=== PATIENT | female | born 1985 | race Caucasian/White ===

== ENCOUNTER 2016-09-17 08:54 | Emergency (ER) | payer SELFPAY ==
[~2016-09-17] VITALS: Ht 154.9 cm; Wt 73.6 kg
[~2016-09-17 08:54] MED LIST: HALO2TAB PO; ONDA4TAB6 PO; PROM25SU47 RECTAL
[2016-09-17 08:55] VITALS: BP 116/77; PULSE 99; RESP 20; O2SAT 100
[2016-09-17] MEDS ORDERED: 0.9% Sodium Chloride 1,000 ML IV ONE (08:59)
--- NOTE | 2016-09-17 08:59 | ED.REPORT ---
HPI-Abd Pain F Under 40 Date of Service Sep 17, 2016 ED Provider: Camilo Medellin Patient is a 31 year old female who presents to the ED complaining of LUQ abdominal pain onset about 36 hours ago. Associated symptoms include nausea, vomiting, and diarrhea. She has not been able to keep fluids down. She denies hematemesis, hematochezia, cough, or any other symptoms. She has had contact with flu-like illness but nothing as severe as her symptoms. She has had similar abdominal pain when drinking soda or beer. Nursing Notes Stated Complaint: NAUSEA Chief Complaint: Female Abdominal Pain Nursing Notes Reviewed: Yes Allergies: Coded Allergies: No Known Allergies (Unverified Allergy, Unknown, 05/23/15) Scheduled PRN Haloperidol (Haloperidol) 2 Mg Tablet 2 MG PO TID PRN PRN For Pain Ondansetron (Zofran) 4 Mg Tablet 4 MG PO Q4H PRN PRN For Nausea Promethazine Supp (Promethazine Supp) 25 Mg Supp 25 MG RECTAL Q6H PRN PRN For Pain General Time Seen by MD: 08:59 Chief Complaint Abdominal pain Hx Obtained From: Patient, Other family... Arrived By: Walk-in Sudden in Onset?: Yes Past Medical History Past Medical History Healthy Past Surgical History None Smoking History Former Smoker Social History Denies smoking at this time. 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 Physical Exam Initial Vital Signs Vital Signs (First) Date Time Temp Pulse Resp B/P Pulse Ox O2 Delivery O2 Flow Rate FiO2 09/17/16 08:55 36.6 99 20 116/77 100 Head / Eyes: Atraumatic, Normocephalic Neck: Full range of motion Skin: Warm, Dry Neurologic: Alert, Oriented, Nonfocal Psychiatric: Mood/affect normal, Behavior normal, Normal thought content General/Constitutional: Awake, Alert, Well appearing Distress / Hydration: Positive: Distress mild Respiratory / Chest: Atraumatic, Breath sounds NL, Breath sounds = bilat, No respiratory distress Cardiovascular: Heart rate NL, Regular rhythm, Heart sounds NL, Peripheral circulation NL Abdomen: Atraumatic, Soft, BS normoactive Tenderness/Guarding/Rebound: Positive: Tender LUQ..., Tender epigastric (Mid- epigastrium) Back: Inspection NL Interpretation & Diagnostics Lab Results Interpretation Result Diagram: 09/17/16 0912 09/17/16 0912 Test 09/17/16 09:12 09/17/16 10:01 White Blood Count 16.8th/mm3 (3.8-10.1) Red Blood Count 5.08mil/mm3 (3.90-5.20) Hemoglobin 15.3g/dL (12.0-15.6) Hematocrit 43.5% (35.0-46.0) Mean Corpuscular Volume 85.6fL (81-100) Mean Corpuscular Hemoglobin 30.1pg (27.0-35.0) Mean Corpuscular Hemoglobin Concent 35.2% (32.0-37.0) Red Cell Distribution Width 13.2% (12.3-15.4) Platelet Count 395bil/L (150-400) Neutrophils (%) (Auto) 86.1% (40-74) Lymphocytes (%) (Auto) 4.9% (14-46) Monocytes (%) (Auto) 8.6% (4-12) Eosinophils (%) (Auto) 0.1% (0-5) Basophils (%) (Auto) 0.1% (0-3) Sodium Level 137mEq/L (134-144) Potassium Level 3.5mEq/L (3.5-5.2) Chloride Level 99mEq/L (97-108) Carbon Dioxide Level 23mmol/L (18-29) Blood Urea Nitrogen 17mg/dL (6-20) Creatinine 0.79mg/dL (0.57-1.00) Estimat Glomerular Filtration Rate 123mL/min (>59) Glucose Level 132mg/dL (60-99) Calcium Level 9.6mg/dL (8.5-10.1) Magnesium Level 2.2mg/dL (1.6-2.6) Total Bilirubin 0.4mg/dL (0.0-1.2) Aspartate Amino Transf (AST/SGOT) 24U/L (0-50) Alanine Aminotransferase (ALT/SGPT) 16U/L (0-32) Alkaline Phosphatase 48U/L (25-150) Total Protein 8.7g/dL (6.4-8.4) Albumin 4.7g/dL (3.4-5.0) Lipase 21U/L (13-60) Hold Urine Received (Received) CT Abd / Pelvis Interpretation IMPRESSION: 1. No acute disease process. 2. The appendix is normal. 3. Small amount of free fluid in the cul-de-sac or pelvis is within physiologic limits. 4. No inflammatory changes. 5. No free air. 6. No dilated loops of bowel. Dictated by: Sneha Tapia MD, PhD on 09/17/2016 at 12:10 Approved by: Sneha Tapia MD, PhD on 09/17/2016 at 12:10 Study type: Abdominal CT IV contrast Interpretation / Wet Read by: Interpret - Radiologist Re-Eval/Medical Decision Med Decision/Clinical Course Because of her persistent left upper quadrant tenderness in the face of IV Protonix, Tylenol and ketorolac I decided to do a CT scan which ultimately did not elucidate the etiology of her symptoms. She feels dramatically improved with IV hydromorphone. Re-Evaluation/Progress #1: Time of Eval: 10:10 )( Re-Eval Abdomen: BS normoactive Re-Evaluation/Progress Note: Rechecked patient. Pain has mildly improved and nausea has resolved. Re-Evaluation/Progress #2: Time of Eval: 11:24 )( Re-Eval Abdomen: BS normoactive Re-Evaluation/Progress Note: Rechecked patient. Re-Evaluation/Progress #3: Time of Eval: 12:25 )( Re-Eval Abdomen: BS normoactive Patient Status: Condition improved Re-Evaluation/Progress Note: Rechecked patient. Discussed plan for discharge. Patient understands and agrees with plan. All questions addressed at this time. Counseled Regarding: Diagnosis, Lab results, Need for follow-up, When/why to return to ED Discharge & Departure Primary Impression: Abdominal pain Abdominal location: left upper quadrant Qualified Code: R10.12 - Left upper quadrant pain Additional Impressions: Nausea & vomiting Vomiting type: unspecified Vomiting Intractability: unspecified Qualified Code: R11.2 - Nausea with vomiting, unspecified Diarrhea Disposition: Home Discharge Condition All VS Reviewed: Yes Condition: Improved Patient Instructions: Acute Abdominal Pain (ED), Acute Nausea and Vomiting (ED) Additional Instructions: No dangerous cause for your symptoms his discomfort today. I believe you have some sort of a viral gastrointestinal infection, but you need follow-up tomorrow if your symptoms are not significantly improved. Follow-up next week if things are not resolved. Use Tylenol or ibuprofen preferentially to help with pain. Use ondansetron as needed for nausea. Stick to a clear liquid diet until you are feeling somewhat better. Use hydrocodone/APAP as needed for more severe pain if the preceding treatments are insufficient to keep your pain reasonably controlled. Referrals: Albin Leggett DO [facility] Scribe Attestation Portions of this note were transcribed by Tony Beasley. I, Dr. Medellin personally performed the history, physical exam and medical decision-making; I reviewed and confirmed the accuracy of the information in the transcribed note. Signed by: Tony Beasley 09/17/16, 1227 copies to: [facility] Camilo Medellin MD Sep 17, 2016 08:59 TONY BEASLEY Sep 17, 2016 09:11
[2016-09-17] MEDS ORDERED: Pantoprazole 4 mg/mL 10 mL Inj IVPUSH ONE (09:00)
[2016-09-17] MEDS: Ondansetron 2 mg/mL 2 mL Inj IVPUSH PRN ×2 (09:11→09:42)
[2016-09-17 09:30] LABS: BASOPHILS % (AUTO) 0.1 % (0-3); EOSINOPHILS % (AUTO) 0.1 % (0-5); MONOCYTES % (AUTO) 8.6 % (4-12); Mean Corpuscular Hemoglobin 30.1 pg (27.0-35.0); Mean Corpuscular Volume 85.6 fL (81-100); NEUTROPHILS % (AUTO) 86.1 % (40-74); Platelet Count 395 bil/L (150-400)
[2016-09-17 10:03] LABS: Magnesium 2.2 mg/dL (1.6-2.6)
[2016-09-17] MEDS ORDERED: Acetaminophen IV 1,000 MG in IV Premix 1 EACH IV ONE (10:15)
[2016-09-17] MEDS ORDERED: HYDROmorphone 1 mg/mL Inj IVPUSH ONE (11:20)
--- NOTE | 2016-09-17 12:12 | DRSVH ---
PROCEDURE: CT ABDOMEN AND PELVIS WITH CONTRAST ([id number]) INDICATIONS: LUQ pain TECHNIQUE: After the administration of intravenous contrast, 5 mm thick sections acquired from the diaphragm to the symphysis. 5 mm coronal and sagittal reformats were acquired. For radiation dose reduction, the following was used: automated exposure control, adjustment of mA and/or kV according to patient siz e. COMPARISON: None. FINDINGS: Image quality: Excellent. ABDOMEN: Lung bases: Lung bases are clear. Heart size is normal. Solid organs: Liver and spleen are normal in size and enhancement. Gallbladder is within normal lopez its. Biliary system is non dilated. Pancreas enhances normally. No adrenal nodules. Kidneys demon strate normal size and enhancement, without hydronephrosis. Peritoneum and bowel: Bowel loops demonstrate normal wall thickness and caliber. No free air. Small amount of free fluid noted within the cul-de-sac of the pelvis which is within physiologic limits. T he appendix is normal. Nodes and vessels: No retroperitoneal or mesenteric adenopathy by size criteria. Aorta and inferior vena cava are normal in size. Miscellaneous: No ventral hernias. PELVIS: Genitourinary: Bladder wall thickness is normal. Miscellaneous: No inguinal hernias or adenopathy. Bones: No suspicious bony lesions. No vertebral body compression fractures. IMPRESSION: 1. No acute disease process. 2. The appendix is normal. 3. Small amount of free fluid in the cul-de-sac or pelvis is within physiologic limits. 4. No inflammatory changes. 5. No free air. 6. No dilated loops of bowel. Dictated by: Sneha Tapia MD, PhD on 09/17/2016 at 12:10 Approved by: Sneha Tapia MD, PhD on 09/17/2016 at 12:10
[2016-09-17] MEDS ORDERED: ONDA4TAB9 PO (12:32)
[2016-09-17] MEDS ORDERED: HYDR-4003 PO (12:32)
[2016-09-17 12:46] VITALS: BP 104/64; PULSE 62; RESP 16; O2SAT 98
[2016-09-18] MEDS ORDERED: OMEP20TA86 PO (01:56)
== END 2016-09-17 12:48 | disposition home or self-care (01) ==
LOC: SED 08:54
DX: R10.12 Left upper quadrant pain (principal); R11.2 Nausea with vomiting, unspecified; R19.7 Diarrhea, unspecified; F12.10 Cannabis abuse, uncomplicated; Z87.891 Personal history of nicotine dependence
CPT/HCPCS: 36415; 74177; 80053; 81025; 83690; 83735; 85025; 96361; 96374; 96375; 96376; 99285; J0131; J1170; J2405; J7030; Q9967

== ENCOUNTER 2016-09-17 23:07 | Emergency (ER) | payer SELFPAY ==
[~2016-09-17] VITALS: Ht 154.9 cm; Wt 73.6 kg
[~2016-09-17 23:07] MED LIST changes: +HYDR-4003 PO; +ONDA4TAB9 PO
[2016-09-17 23:10] VITALS: BP 121/78; PULSE 64; RESP 18; O2SAT 98
--- NOTE | 2016-09-17 23:27 | ED.REPORT ---
HPI-Abd Pain F Under 40 Date of Service Sep 17, 2016 ED Provider: Salvatore Mcdonald MD 31 year old female with a history of GERD presents to the ER accompanied by her mother with three days of epigastric abdominal pain and intractable vomiting. Patient denies hematemesis, hematochezia, melena, cough, and fever. Her family members have recently been sick with similar symptoms. She was seen here earlier today with an extensive workup including CT and no particular findings. She returns with continued pain, requesting "the same medicine they gave me earlier." That was Dilaudid, according to her record. Nursing Notes Stated Complaint: VOMITING/ABDOMINAL PAIN Chief Complaint: Female Abdominal Pain Nursing Notes Reviewed: Yes Allergies: Coded Allergies: No Known Allergies (Unverified Allergy, Unknown, 05/23/15) Scheduled Omeprazole (Omeprazole) 20 Mg Tablet.dr 20 MG PO BID Scheduled PRN Haloperidol (Haloperidol) 2 Mg Tablet 2 MG PO TID PRN PRN For Pain Hydrocodone-Acetaminophen 5-325 mg (Hydrocodone-Acetaminophen 5-325 mg) 1 Each Tablet 1-2 TABLET PO Q4H PRN PRN For Pain Ondansetron (Zofran) 4 Mg Tablet 4 MG PO Q4H PRN PRN For Nausea Ondansetron ODT (Zofran ODT) 4 Mg Tablet 4 MG PO Q4H PRN PRN For Nausea Promethazine Supp (Promethazine Supp) 25 Mg Supp 25 MG RECTAL Q6H PRN PRN For Pain General Time Seen by MD: 23:27 Chief Complaint Abdominal pain Hx Obtained From: Patient Arrived By: Walk-in Sudden in Onset?: No Onset Occurred: 3 days ago Symptom Duration: Since onset Location: : Epigastric Quality: Painful Severity: Current: Moderate Severity: Maximum: Moderate Associated with: Reports: Nausea, Vomiting, Denies: Fever Past Medical History Past Medical History Reports: GERD Past Surgical History None Smoking History Former Smoker Social History Denies smoking at this time. 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 Physical Exam Initial Vital Signs Vital Signs (First) Date Time Temp Pulse Resp B/P Pulse Ox O2 Delivery O2 Flow Rate FiO2 09/17/16 23:10 36.3 64 18 121/78 98 Room Air Initial VS: Reviewed Head / Eyes: Atraumatic, Normocephalic Neck: Supple, Non-tender, Full range of motion Extremities: Vascular intact, Neuro intact, No swelling, No tenderness Skin: Warm, Dry, No cyanosis Neurologic: Alert, Oriented, Nonfocal General/Constitutional: Awake, Alert, Well developed, Well nourished Behavior: Positive: Anxious Appearance / Presentation: Positive: In pain, Uncomfortable Respiratory / Chest: Breath sounds NL, Breath sounds = bilat, No respiratory distress, No rales, No rhonchi, No wheezing Cardiovascular: Heart rate NL, Regular rhythm, Heart sounds NL, Peripheral circulation NL Abdomen: Soft, No rebound, No distention Tenderness/Guarding/Rebound: Positive: Tender epigastric Back: Inspection NL, Non-tender, No CVA tenderness Interpretation & Diagnostics Lab Results Interpretation Result Diagram: 09/18/16 0025 09/18/16 0025 Test 09/17/16 23:59 09/18/16 00:25 Urine Color Dark yellow (YELLOW) Urine Appearance Hazy (CLEAR,HAZY) Urine pH 6.5 (5.0-8.0) Urine Specific [place] 1.020 (1.003-1.035) Urine Protein Tracemg/dL (NEG,TRACE) Urine Glucose (UA) Negativemg/dL (NEGATIVE) Urine Ketones >80mg/dL (NEGATIVE) Urine Occult Blood Small (NEGATIVE) Urine Nitrite Negative (NEGATIVE) Urine Bilirubin Negative (NEGATIVE) Urine Urobilinogen Normalmg/dL (NORMAL) Urine Leukocyte Esterase Negative (NEGATIVE) Urine RBC 0-2/hpf (0-2) Urine WBC 0-5/hpf (0-5) Urine Epithelial Cells Moderate/hpf (NONE-MOD) Urine Crystals None seen (NONE SEEN) Urine Bacteria Few/hpf (NONE-FEW) Urine Hyaline Casts None/lpf (NONE) Urine Granular Casts None seen (NONE SEEN) Urine Waxy Casts None seen (NONE SEEN) Urine Red Blood Cell Casts None seen (NONE SEEN) Urine White Blood Cell Casts None seen (NONE SEEN) Urine Mucus Present (None Seen) Urine Trichomonas None seen (NONE SEEN) Urine Yeast None (NONE SEEN) Urine Culture Reflexed Not indicated White Blood Count 16.2th/mm3 (3.8-10.1) Red Blood Count 4.33mil/mm3 (3.90-5.20) Hemoglobin 12.9g/dL (12.0-15.6) Hematocrit 37.9% (35.0-46.0) Mean Corpuscular Volume 87.5fL (81-100) Mean Corpuscular Hemoglobin 29.8pg (27.0-35.0) Mean Corpuscular Hemoglobin Concent 34.0% (32.0-37.0) Red Cell Distribution Width 12.9% (12.3-15.4) Platelet Count 317bil/L (150-400) Neutrophils (%) (Auto) 87.7% (40-74) Lymphocytes (%) (Auto) 5.2% (14-46) Monocytes (%) (Auto) 6.7% (4-12) Eosinophils (%) (Auto) 0.1% (0-5) Basophils (%) (Auto) 0.1% (0-3) Sodium Level 137mEq/L (134-144) Potassium Level 3.9mEq/L (3.5-5.2) Chloride Level 102mEq/L (97-108) Carbon Dioxide Level 19mmol/L (18-29) Blood Urea Nitrogen 16mg/dL (6-20) Creatinine 0.61mg/dL (0.57-1.00) Estimat Glomerular Filtration Rate 166mL/min (>59) Glucose Level 102mg/dL (60-99) Calcium Level 8.3mg/dL (8.5-10.1) Magnesium Level 2.0mg/dL (1.6-2.6) Total Bilirubin 0.3mg/dL (0.0-1.2) Aspartate Amino Transf (AST/SGOT) 18U/L (0-50) Alanine Aminotransferase (ALT/SGPT) 15U/L (0-32) Alkaline Phosphatase 36U/L (25-150) Total Protein 6.9g/dL (6.4-8.4) Albumin 4.0g/dL (3.4-5.0) Lipase 111U/L (13-60) Hold Cage Top Tube Received (Received) Re-Eval/Medical Decision Med Decision/Clinical Course Med Decision/Clinical Course: 31-year-old presents with continued epigastric discomfort after complete evaluation earlier today. She is requesting additional pain meds. Discussed with her and family, but continuing Dilaudid is inappropriate in this setting. She was improved as regards her nausea with Zofran and Haldol. Her cramps were moderately better with Bentyl. She is able to drink fluids and is discharged in stable condition for follow-up with her PCP. Re-Evaluation/Progress : Time of Eval: 01:37 Re-Evaluation/Progress Note: Discussed lab results and plan to discharge. Patient is amenable to the plan. Return precautions given. All other questions addressed. Counseled Regarding: Diagnosis, Lab results, Need for follow-up, When/why to return to ED Discharge & Departure Primary Impression: Gastroenteritis Additional Impressions: Reflux esophagitis Nausea & vomiting Vomiting type: unspecified Vomiting Intractability: non-intractable Qualified Code: R11.2 - Nausea with vomiting, unspecified Disposition: Home Discharge Condition All VS Reviewed: Yes Condition: Stable Patient Instructions: Acute Nausea and Vomiting (DC), Gastroenteritis (DC), Gastroesophageal Reflux Disease (DC) Additional Instructions: Omeprazole twice daily to prevent acid formation. Continue your prescribed meds for nausea Ondansetron four times daily if needed for nausea Compazine suppository if additional is needed. Follow up with your doctor in the office. Return if any immediate issues, particularly if worsening despite treatment. Referrals: NOPCP (PCP) Scribe Attestation Portions of this note were transcribed by Shena Maya. I, Dr. Mcdonald, personally performed the history, physical exam and medical decision-making; I reviewed and confirmed the accuracy of the information in the transcribed note. Signed by: Belkis Bowens. 09/18/2016, 01:59 Salvatore Mcdonald MD Sep 17, 2016 23:27 SHENA MAYA Sep 17, 2016 23:36
[2016-09-17] MEDS ORDERED: 0.9% Sodium Chloride 1,000 ML IV ONE (23:34)
[2016-09-17] MEDS ORDERED: Ondansetron 2 mg/mL 2 mL Inj IVPUSH ONE (23:35)
[2016-09-17] MEDS ORDERED: Acetaminophen IV 1,000 MG in IV Premix 1 EACH IV ONE (23:35)
[2016-09-17] MEDS ORDERED: Pantoprazole 4 mg/mL 10 mL Inj IVPUSH ONE (23:35)
[2016-09-18] MEDS ORDERED: Haloperidol 5 mg/mL Inj IVPUSH ONE (00:35)
[2016-09-18] MEDS ORDERED: 0.9% Sodium Chloride 50 ML ONE (00:40)
[2016-09-18 00:43] LABS: BASOPHILS % (AUTO) 0.1 % (0-3); EOSINOPHILS % (AUTO) 0.1 % (0-5); MONOCYTES % (AUTO) 6.7 % (4-12); Mean Corpuscular Hemoglobin 29.8 pg (27.0-35.0); Mean Corpuscular Volume 87.5 fL (81-100); NEUTROPHILS % (AUTO) 87.7 % (40-74); Platelet Count 317 bil/L (150-400)
[2016-09-18 01:02] LABS: APPEARANCE,URINE HAZY (CLEAR,HAZY); COLOR,URINE DARK YELLOW (YELLOW); OCCULT BLOOD,URINE SMALL (NEGATIVE); PH,URINE 6.5 (5.0-8.0); UROBILINOGEN,URINE NORMAL (NORMAL)
[2016-09-18] MEDS ORDERED: OMEP20TA86 PO (01:56)
[2016-09-18] MEDS ORDERED: _Ondansetron ODT 4 mg Tablet PO PRN (02:00)
[2016-09-18 02:21] VITALS: BP 116/76; PULSE 61; RESP 16; O2SAT 96
== END 2016-09-18 02:23 | disposition home or self-care (01) ==
LOC: SED 23:07
DX: K52.9 Noninfective gastroenteritis and colitis, unspecified (principal); K21.0 Gastro-esophageal reflux disease with esophagitis
CPT/HCPCS: 36415; 80053; 81000; 83690; 83735; 85025; 96361; 96374; 96375; 99284; J0131; J1200; J1630; J2405; J7030

== ENCOUNTER 2017-05-26 13:01 | Emergency (ER) | payer SELFPAY ==
[~2017-05-26] VITALS: Ht 154.9 cm; Wt 72.7 kg
[~2017-05-26 13:01] MED LIST changes: +OMEP20TA86 PO
[2017-05-26 13:03] VITALS: BP 133/80; PULSE 77; RESP 22; O2SAT 97
[2017-05-26 13:35] LABS: BASOPHILS % (AUTO) 0.1 % (0-3); EOSINOPHILS % (AUTO) 0.1 % (0-5); MONOCYTES % (AUTO) 6.5 % (4-12); Mean Corpuscular Hemoglobin 30.1 pg (27.0-35.0); Mean Corpuscular Volume 87.1 fL (81-100); NEUTROPHILS % (AUTO) 85.8 % (40-74); Platelet Count 381 bil/L (150-400)
[2017-05-26 13:55] LABS: Magnesium 2.3 mg/dL (1.6-2.6)
--- NOTE | 2017-05-26 14:35 | ED.REPORT ---
HPI-NVD Date of Service May 26, 2017 ED Provider: Doc,Ed MD The pt is a 31 y/o female w/ a hx of chronic marijuana use and GERD presenting to the ED c/o upper abdominal pain onset 3 days ago. She is also experiencing vomiting, diarrhea, nausea, a cough, and dysuria. Denies hematemesis, blood in stool, SOB, or sore throat. The pt has had 3 bottles of Pedialyte and Zantac 150 mg w/o relief. She uses marijuana daily, 3x/day for last 13 years. Nursing Notes Stated Complaint: VOMITTING FOR 4 DAYS Chief Complaint: Female Abdominal Pain Nursing Notes Reviewed: Yes Allergies: Coded Allergies: No Known Allergies (Unverified Allergy, Unknown, 05/23/15) Scheduled Omeprazole (Omeprazole) 20 Mg Tablet.dr 20 MG PO BID Scheduled PRN Haloperidol (Haloperidol) 2 Mg Tablet 2 MG PO TID PRN PRN For Pain Hydrocodone-Acetaminophen 5-325 mg (Hydrocodone-Acetaminophen 5-325 mg) 1 Each Tablet 1-2 TABLET PO Q4H PRN PRN For Pain Ondansetron (Zofran) 4 Mg Tablet 4 MG PO Q4H PRN PRN For Nausea Ondansetron ODT (Zofran ODT) 4 Mg Tablet 4 MG PO Q4H PRN PRN For Nausea Promethazine Supp (Promethazine Supp) 25 Mg Supp 25 MG RECTAL Q6H PRN PRN For Pain General Time Seen by MD: 14:35 Chief Complaint Abd pain, constant Hx Obtained From: Patient Arrived By: Walk-in Onset Occurred: 3 days ago Symptom Duration: Since onset Recent Healthcare: No recent hospitalization, Recent doctor visit Similar Sx Previous: Yes Past Medical History Past Medical History Reports: GERD, Denies: Asthma, COPD, Congestive heart failure, Diabetes mellitus Past Surgical History None Smoking History Former Smoker Social History Denies smoking at this time. Endorses smoking "pot" 3x/day for the lastd 13 years. 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 Respiratory: Reports: Non-productive cough, Denies: Shortness of breath Female: Reports: Dysuria Physical Exam Initial Vital Signs Vital Signs (First) Date Time Temp Pulse Resp B/P Pulse Ox O2 Delivery O2 Flow Rate FiO2 05/26/17 13:03 37.2 77 22 133/80 97 Room Air Initial VS: Reviewed Head / Eyes: Atraumatic, Normocephalic, PERRL ENT: Mucous membranes moist, Conjunctiva normal, No scleral icterus Neck: Supple, Non-tender, Full range of motion Respiratory: Breath sounds normal, Clear to auscultation, No respiratory distress Cardiovascular: Regular rate & rhythm, Heart sounds normal, Intact distal pulses Extremities: Vascular intact, Neuro intact, No swelling, No tenderness Skin: Warm, Dry, No cyanosis Neurologic: Alert, Oriented, Nonfocal Psychiatric: Mood/affect normal, Behavior normal, Normal thought content General/Constitutional: Awake, Alert Distress / Hydration: Positive: Distress mild Abdomen: Soft MIld epigastric tenderness w/o guarding Interpretation & Diagnostics Lab Results Interpretation Result Diagram: 05/26/17 1320 05/26/17 1320 Test 05/26/17 13:20 05/26/17 14:33 White Blood Count 18.6th/mm3 (3.8-10.1) Red Blood Count 4.79mil/mm3 (3.90-5.20) Hemoglobin 14.4g/dL (12.0-15.6) Hematocrit 41.7% (35.0-46.0) Mean Corpuscular Volume 87.1fL (81-100) Mean Corpuscular Hemoglobin 30.1pg (27.0-35.0) Mean Corpuscular Hemoglobin Concent 34.5% (32.0-37.0) Red Cell Distribution Width 12.6% (12.3-15.4) Platelet Count 381bil/L (150-400) Neutrophils (%) (Auto) 85.8% (40-74) Lymphocytes (%) (Auto) 7.1% (14-46) Monocytes (%) (Auto) 6.5% (4-12) Eosinophils (%) (Auto) 0.1% (0-5) Basophils (%) (Auto) 0.1% (0-3) Sodium Level 140mEq/L (134-144) Potassium Level 3.3mEq/L (3.5-5.2) Chloride Level 97mEq/L (97-108) Carbon Dioxide Level 24mmol/L (18-29) Blood Urea Nitrogen 16mg/dL (6-20) Creatinine 0.71mg/dL (0.57-1.00) Estimat Glomerular Filtration Rate 139mL/min (>59) Glucose Level 106mg/dL (60-99) Lactic Acid Level 1.2mmol/L (0.4-2.0) Calcium Level 9.1mg/dL (8.5-10.1) Magnesium Level 2.3mg/dL (1.6-2.6) Total Bilirubin 1.0mg/dL (0.0-1.2) Aspartate Amino Transf (AST/SGOT) 16U/L (0-50) Alanine Aminotransferase (ALT/SGPT) 15U/L (0-32) Alkaline Phosphatase 52U/L (25-150) Total Protein 8.4g/dL (6.4-8.4) Albumin 4.6g/dL (3.4-5.0) Lipase 20U/L (13-60) Re-Eval/Medical Decision Source of Hx: Old records Counseled Regarding: Diagnosis, Lab results Discharge & Departure Impression: Primary Impression: Abdominal pain Abdominal location: epigastric Qualified Code: R10.13 - Epigastric pain Referrals: Amalia Dorantes MD Care Transferred to: [facility] Transferred at: 14:52 Scribe Attestation Portions of this note were transcribed by Ron Downey. I, Dr. Medellin personally performed the history, physical exam and medical decision-making; I reviewed and confirmed the accuracy of the information in the transcribed note. copies to: Amalia Dorantes MD, Kirk H MD May 26, 2017 14:35 Ron Downey May 26, 2017 14:51
[2017-05-26] MEDS ORDERED: Promethazine Inj 25 MG in 0.9% Sodium Chloride 50 ML IV ONE (14:40)
[2017-05-26] MEDS ORDERED: MetoCLOpramide 5 mg/mL 2 mL Inj IVPUSH ONE (14:40)
[2017-05-26] MEDS: Ondansetron 2 mg/mL 2 mL Inj IVPUSH PRN ×2 (15:11→19:13)
[2017-05-26] MEDS ORDERED: 0.9% Sodium Chloride 1,000 ML IV ONE ×2 (16:15→18:10)
[2017-05-26] MEDS ORDERED: LidocaineVisc 2%:Antacid 1:1 10 mL Syringe PO STA (17:17)
[2017-05-26] MEDS ORDERED: Potassium Chloride 20 mEq SR Tablet PO ONE (18:10)
[2017-05-26 19:06] VITALS: BP 134/77; PULSE 67; RESP 20; O2SAT 98
[2017-05-26] MEDS ORDERED: SULF1TAB7 PO (19:16)
[2017-05-26] MEDS ORDERED: ONDA4TAB6 PO (19:16)
[2017-05-26 19:27] LABS: APPEARANCE,URINE HAZY (CLEAR,HAZY); COLOR,URINE YELLOW (YELLOW); OCCULT BLOOD,URINE LARGE (NEGATIVE)
[2017-05-26 19:40] VITALS: BP 134/77; PULSE 67; RESP 20; O2SAT 98
--- NOTE | 2017-05-26 20:14 | DRSVH ---
PROCEDURE: US ABDOMEN ([id number]) INDICATIONS: leukocytosis, RUQ abdominal pain TECHNIQUE: Real-time scanning was performed of the abdominal and retroperitoneal organs, with image documentatio n. COMPARISON: [facility], CT, CT ABD PELVIS W CON, 09/17/2016, 11:57. [facility], US, US ABDOMEN, 05/23/2015, 0:22. FINDINGS: Liver: Liver is normal in size and homogeneous in echotexture. Gallbladder: Is within normal limits Biliary ducts: Intrahepatic bile ducts are non-dilated. Extrahepatic bile duct caliber measures 2.3 mm. Normal is 6-7 mm or less in diameter, or 10 mm or less post-cholecystectomy. Pancreas: Visualized portions of the pancreas are sonographically normal. Spleen: Spleen is normal in size and homogeneous in echotexture. Kidneys: Kidneys are normal in size and echotexture. Right kidney measures 12 cm long; left kidney measures 9.6 cm long. No hydronephrosis or nephrolithiasis. No solid masses. Aorta: Visualized aorta is normal in caliber at less than 3 cm. Iliacs: Proximal common iliac arteries are normal in caliber at less than 2.5 cm. IVC: Intrahepatic inferior vena cava is patent. Miscellaneous: No free abdominal fluid. IMPRESSION: 1. No acute process. Dictated by: Chelsea Rodriguez M.D. on 05/26/2017 at 20:12 Approved by: Chelsea Rodriguez M.D. on 05/26/2017 at 20:12
== END 2017-05-26 19:40 | disposition home or self-care (01) ==
LOC: SED 13:01
DX: N39.0 Urinary tract infection, site not specified (principal); B96.20 Unspecified Escherichia coli [E. coli] as the cause of diseases classified elsewhere; K21.9 Gastro-esophageal reflux disease without esophagitis; R19.7 Diarrhea, unspecified; R05 Cough; E87.6 Hypokalemia; Z87.891 Personal history of nicotine dependence
CPT/HCPCS: 36415; 76700; 80053; 81000; 81025; 83605; 83690; 83735; 85025; 87086; 87088; 87186; 96361; 96374; 96375; 96376; 99285; J1885; J2405; J2550; J2765; J7030